=== PATIENT | male | born 1960 | race Caucasian/White ===

== ENCOUNTER 2018-10-10 05:48 | Inpatient (IN) | payer BC ==
[2018-10-10] MEDS ORDERED: Albuterol/Ipratropium 3.0-0.5 MG/3 ML Neb Soln NEB ONE (06:34)
--- NOTE | 2018-10-10 06:47 | EDM.PDOC ---
<Isaias Quiles - Last Filed: 10/10/18 06:35> ED HPI GENERAL MEDICAL PROBLEM - General Chief Complaint: Respiratory Problem Stated Complaint: CHEST PAINS,TROUBLE BREATHING Time Seen by Provider: 10/10/18 06:25 Source of Information: Reports: Patient, RN History Limitations: Reports: Other (limited records) - History of Present Illness INITIAL COMMENTS - FREE TEXT/NARRATIVE: 57 yo male presents with dyspnea. He is a life long smoker. He was seen in urgent care in [place] recently and started on doxycycline and prednisone for "pneumonia". He does not think he had a fever and has not had one since. His sputum has never been colored. He is still on the doxycycline, but only was prescribed 5 days of prednisone. He started getting worse as soon as he finished his prednisone. He was asked to follow up with his primary, but comes here due to SOB tonight. The SOB is worse with exertion. At his peak he smoked about a pack per day, now smokes less than 1/2 ppd. Onset: Gradual Duration: Day(s):, Getting Worse Location: Reports: Chest Quality: Reports: Other (no pain) Severity: Moderate Improves with: Reports: Rest Worsens with: Reports: Movement Context: Reports: Other (see HPI) Associated Symptoms: Reports: Cough, Shortness of Breath. Denies: Fever/Chills Treatments [employer]: Reports: Other (see below) (see HPI, has an MDI inhaler as well. ) left upper abd and back Pain Score (Numeric/FACES): 7 - Related Data Allergies Allergy/AdvReac Type Severity Reaction Status Date / Time No Known Allergies Allergy Verified 10/10/18 06:15 Home Meds: Home Meds Aspirin [Leni Chewable] 81 mg PO BEDTIME 10/10/18 [History] Losartan [Cozaar] 100 mg PO BEDTIME 10/10/18 [History] Naproxen Sodium [Aleve] 440 mg PO BEDTIME 10/10/18 [History] amLODIPine [Norvasc] 5 mg PO BEDTIME 10/10/18 [History] Past Medical History Cardiovascular History: Reports: Hypertension, Other (See Below) Other Cardiovascular History: enlarged heart Gastrointestinal History: Reports: Other (See Below) Other Gastrointestinal History: umbilical hernia Musculoskeletal History: Reports: Back Pain, Chronic - Infectious Disease History Infectious Disease History: Reports: Chicken Pox, Shingles - Past Surgical History HEENT Surgical History: Reports: Oral Surgery GI Surgical History: Reports: Colostomy Musculoskeletal Surgical History: Reports: Other (See Below) Other Musculoskeletal Surgeries/Procedures:: jaw surgery Social & Family History - Tobacco Use Smoking Status *Q: Current Every Day Smoker Years of Tobacco use: 35 Packs/Tins Daily: 0.4 - Caffeine Use Caffeine Use: Reports: Coffee - Recreational Drug Use Recreational Drug Use: No ED ROS GENERAL - Review of Systems Review Of Systems: See Below Constitutional: Reports: No Symptoms HEENT: Reports: Rhinitis Respiratory: Reports: Shortness of Breath, Wheezing, Cough, Sputum (clear). Denies: Hemoptysis Cardiovascular: Reports: No Symptoms Endocrine: Reports: No Symptoms GI/Abdominal: Reports: No Symptoms : Reports: No Symptoms Musculoskeletal: Reports: No Symptoms Skin: Reports: No Symptoms Neurological: Reports: No Symptoms ED EXAM, GENERAL - Physical Exam Exam: See Below Exam Limited By: No Limitations General Appearance: Alert, WD/WN, Mild Distress, Obese Eye Exam: Bilateral Eye: Normal Inspection Ears: Normal External Exam, Normal Canal, Hearing Grossly Normal Ear Exam: Bilateral Ear: Auricle Normal, Canal Normal Nose: Normal Inspection, No Blood Throat/Mouth: Normal Inspection, Normal Lips, Normal Oropharynx, Normal Voice, No Airway Compromise Head: Atraumatic, Normocephalic Neck: Normal Inspection, Supple, Non-Tender Respiratory/Chest: Wheezing, Other (mild tachypnea) Cardiovascular: Regular Rate, Rhythm, No Edema GI/Abdominal: Other (obese) Back Exam: Normal Inspection. No: CVA Tenderness (R), CVA Tenderness (L) Extremities: Normal Inspection, Normal Range of Motion, Non-Tender, No Pedal Edema Neurological: Alert, Oriented, CN II-XII Intact, Normal Cognition, No Motor/ Sensory Deficits Psychiatric: Normal Affect, Normal Mood Skin Exam: Warm, Dry, Intact, Normal Color, No Rash Course - Vital Signs Text/Narrative:: CD reviewed brought in by patient of his CXR from his urgent care visit to [place], shows mild hyperaeration and a RLL infiltrate adjacent to his heart border. Last Recorded V/S: Last Vital Signs Temp 96.7 F 10/10/18 06:05 Pulse 89 10/10/18 10:12 Resp 20 10/10/18 07:12 BP 157/75 H 10/10/18 10:12 Pulse Ox 92 L 10/10/18 10:12 - Orders/Labs/Meds Orders: Active Orders 24 hr Category Date Time Status RT Aerosol Therapy [RC] ASDIRECTED Care 10/10/18 06:34 Active RT Aerosol Therapy [RC] ASDIRECTED Care 10/10/18 07:00 Active Sodium Chloride 0.9% [Normal Saline] 1,000 ml Med 10/10/18 07:30 Active IV ASDIRECTED Medication Orders Albuterol/Ipratropium (Duoneb 3.0-0.5 Mg/3 Ml) 3 ml NEB Q4H [facility] Amlodipine Besylate (Norvasc) 5 mg PO BEDTIME [facility] Aspirin (Aspirin) 81 mg PO BEDTIME [facility] Enoxaparin Sodium (Lovenox) 40 mg SUBCUT DAILY [facility] Last Admin: 10/10/18 09:15 Dose: 40 mg Sodium Chloride (Normal Saline) 1,000 mls @ 250 mls/hr IV ASDIRECTED [facility] Last Admin: 10/10/18 07:34 Dose: 250 mls/hr Ceftriaxone Sodium 1 gm/ (Sodium Chloride) 50 mls @ 100 mls/hr IV Q24H [facility] Last Admin: 10/10/18 09:14 Dose: 100 mls/hr Losartan Potassium (Cozaar) 100 mg PO BEDTIME [facility] Methylprednisolone Sodium Succinate (Solu-Medrol) 125 mg IVPUSH Q8H [facility] Naproxen (Naproxen Sodium) 440 mg PO BEDTIME [facility] Valacyclovir HCl (Valtrex) 1,000 mg PO TID [facility] Last Admin: 10/10/18 09:14 Dose: 1,000 mg Labs: Laboratory Tests 10/10/18 10/10/18 Range/Units 06:45 07:08 WBC 9.1 (4.5-11.0) K/uL RBC 4.40 (4.30-5.90) M/uL Hgb 14.2 (12.0-15.0) g/dL Hct 42.9 (40.0-54.0) % MCV 98 (80-98) fL MCH 32 H (27-31) pg MCHC 33 (32-36) % Plt Count 273 (150-400) K/uL Urine Color Yellow Urine Appearance Clear Urine pH 6.0 (4.5-8.0) Ur Specific [place] 1.015 (1.008-1.030) Urine Protein Negative (NEGATIVE) mg/dL Urine Glucose (UA) Normal (NEGATIVE) mg/dL Urine Ketones Negative (NEGATIVE) mg/dL Urine Occult Blood Negative (NEGATIVE) Urine Nitrite Negative (NEGAITVE) Urine Bilirubin Negative (NEGATIVE) Urine Urobilinogen Normal (NORMAL) mg/dL Ur Leukocyte Esterase Negative (NEGATIVE) Urine RBC Not seen (0-5) Urine WBC 0-5 (0-5) Ur Epithelial Cells Not seen Amorphous Sediment Not seen Urine Bacteria Not seen Urine Mucus Not seen Meds: Medications Generic Name Dose Route Start Last Admin Trade Name Freq PRN Reason Stop Dose Admin Albuterol/Ipratropium 3 ml 10/10/18 11:00 Duoneb 3.0-0.5 Mg/3 Ml NEB Q4H [facility] Amlodipine Besylate 5 mg 10/10/18 21:00 Norvasc PO BEDTIME [facility] Aspirin 81 mg 10/10/18 21:00 Aspirin PO BEDTIME [facility] Enoxaparin Sodium 40 mg 10/10/18 09:00 10/10/18 09:15 Lovenox SUBCUT 40 mg DAILY [facility] Administration Sodium Chloride 1,000 mls @ 250 mls/hr 10/10/18 07:30 10/10/18 07:34 Normal Saline IV 250 mls/hr ASDIRECTED [facility] Administration Ceftriaxone Sodium 1 gm/ 50 mls @ 100 mls/hr 10/10/18 09:00 10/10/18 09:14 Sodium Chloride IV 100 mls/hr Q24H [facility] Administration Losartan Potassium 100 mg 10/10/18 21:00 Cozaar PO BEDTIME [facility] Methylprednisolone Sodium Succinate 125 mg 10/10/18 14:00 Solu-Medrol IVPUSH Q8H [facility] Naproxen 440 mg 10/10/18 21:00 Naproxen Sodium PO BEDTIME [facility] Valacyclovir HCl 1,000 mg 10/10/18 09:00 10/10/18 09:14 Valtrex PO 1,000 mg TID [facility] Administration Discontinued Medications Generic Name Dose Route Start Last Admin Trade Name Freq PRN Reason Stop Dose Admin Albuterol 2.5 mg 10/10/18 07:00 10/10/18 07:12 Proventil Neb Soln NEB 10/10/18 07:01 2.5 mg ONETIME ONE Administration Albuterol/Ipratropium 3 ml 10/10/18 06:34 10/10/18 06:39 Duoneb 3.0-0.5 Mg/3 Ml NEB 10/10/18 06:35 3 ml ONETIME ONE Administration Methylprednisolone Sodium Succinate 125 mg 10/10/18 07:16 10/10/18 07:34 Solu-Medrol IVPUSH 10/10/18 07:17 125 mg ONETIME ONE Administration Prednisone 20 mg 10/10/18 06:53 10/10/18 07:12 Prednisone PO 10/10/18 06:54 20 mg ONETIME ONE Administration Prednisone 20 mg 10/10/18 06:59 10/10/18 07:12 Prednisone PO 10/10/18 07:00 20 mg ONETIME ONE Administration Departure - Departure Disposition: Admitted As Inpatient 64 Clinical Impression: Asthma with status asthmaticus Qualifiers: Asthma severity: moderate Asthma persistence: persistent Qualified Code(s): J45.42 - Moderate persistent asthma with status asthmaticus - Discharge Information - My Orders Last 24 Hours: My Active Orders 10/10/18 07:30 Sodium Chloride 0.9% [Normal Saline] 1,000 ml IV ASDIRECTED - Assessment/Plan Last 24 Hours: My Active Orders 10/10/18 07:30 Sodium Chloride 0.9% [Normal Saline] 1,000 ml IV ASDIRECTED <Jose Mares - Last Filed: 10/10/18 10:53> Course - Re-Assessments/Exams Free Text/Narrative Re-Assessment/Exam: 10/10/18 07:31 Patient care except from Dr. Quiles. After the DuoNeb the patient was still dyspneic and wheezy. An IV was started, he'll be given 125 mg of IV Solu-Medrol and Dr. Wakefield was called and will come in and visit with the patient to consider admission for acute exacerbation of reactive airways and asthma unresponsive to outpatient treatment. Departure - Departure Time of Disposition: 10:35
[2018-10-10] MEDS ORDERED: predniSONE 20 MG Tab PO ONE ×2 (06:53→06:59)
[2018-10-10] MEDS ORDERED: Albuterol 0.083% 2.5 MG/3 ML Neb Soln NEB ONE (07:00)
[2018-10-10] MEDS ORDERED: methylPREDNISolone Sodium Succinate 125 MG/2 ML SDV IVPUSH ONE (07:16)
[2018-10-10] MEDS: Sodium Chloride 0.9% 1,000 ML IV SCH ×2 (07:34→12:28)
[2018-10-10] MEDS ORDERED: methylPREDNISolone Sod Succ 125 MG in Dextrose 5% in Water 100 ML IV SCH ×2 (08:45)
[2018-10-10] MEDS: valACYclovir 1,000 MG Tab PO SCH ×3 (09:14→20:25)
[2018-10-10] MEDS: cefTRIAXone 1 GM in Sodium Chloride 0.9% 50 ML IV SCH (09:14)
[2018-10-10] MEDS: Enoxaparin 40 MG/0.4 ML Syringe SUBCUT SCH (09:15)
--- NOTE | 2018-10-10 10:25 | CRLCR ---
HISTORY: Pneumonia. TECHNIQUE: Two-view chest. COMPARISON: Chest x-ray 10/03/2018. FINDINGS: Persistent curvilinear air-tissue interfaces in the medial lower right lung along the right heart border. No pleural effusion or pneumothorax. Pulmonary vasculature and cardiomediastinal silhouette are within normal limits and unchanged. Mild degenerative changes of the spine. IMPRESSION: Right middle lobe atelectasis or scarring, less likely acute airspace disease, unchanged. Dictated by Salvador Shelton MD @ Oct 10 2018 10:19AM Signed by Dr. Salvador Shelton @ Oct 10 2018 10:23AM
[2018-10-10] MEDS: Albuterol/Ipratropium 3.0-0.5 MG/3 ML Neb Soln NEB SCH ×4 (10:57→23:07)
[2018-10-10] MEDS ORDERED: Acetaminophen 325 MG Tab PO PRN (13:27)
[2018-10-10] MEDS ORDERED: Sodium Chloride 0.9% 10 ML SDV IV STA (13:33)
[2018-10-10] MEDS ORDERED: Sodium Chloride 0.9% 1,000 ML IV SCH (13:45)
[2018-10-10] MEDS: methylPREDNISolone Sodium Succinate 125 MG/2 ML SDV IVPUSH SCH ×2 (14:58→23:07)
[2018-10-10] MEDS: Ibuprofen 600 MG Tab PO PRN (15:01)
--- NOTE | 2018-10-10 15:09 | PCM.HP ---
H&P History of Present Illness - General Date of Service: 10/10/18 Admit Problem/Dx: Admission Diagnosis/Problem Admission Diagnosis/Problem Acute respiratory distress Source of Information: Patient, EMS, EMS Notes Reviewed History Limitations: Reports: No Limitations - History of Present Illness Initial Comments - Free Text/Narative: Barney had gone to an urgent care clinic last week and was given prednisone and an inhaler and later on was found to have herpes zoster and was given medication. Early this morning he became increasing short of breath and wheezing and was in significant respiratory distress came into the emergency room and then was admitted. He normally does not take medication for breathing. Onset of Symptoms: Reports: Gradual Duration of Symptoms: Reports: Day(s): Location: Reports: Chest Improves with: Reports: None Worsens with: Reports: Movement left upper abd and back Pain Score (Numeric/FACES): 7 - Related Data Allergies/Adverse Reactions: Allergies Allergy/AdvReac Type Severity Reaction Status Date / Time No Known Allergies Allergy Verified 10/10/18 06:15 Home Medications: Home Meds Aspirin [Leni Chewable] 81 mg PO BEDTIME 10/10/18 [History] Doxycycline Hyclate 100 mg PO BID 10/10/18 [History] Losartan [Cozaar] 100 mg PO BEDTIME 10/10/18 [History] Naproxen Sodium [Aleve] 440 mg PO BEDTIME 10/10/18 [History] amLODIPine [Norvasc] 5 mg PO BEDTIME 10/10/18 [History] valACYclovir HCl [valACYclovir] 1,000 mg PO TID 10/10/18 [History] Past Medical History Cardiovascular History: Reports: Hypertension, Other (See Below) Other Cardiovascular History: enlarged heart Gastrointestinal History: Reports: Other (See Below) Other Gastrointestinal History: umbilical hernia Musculoskeletal History: Reports: Back Pain, Chronic - Infectious Disease History Infectious Disease History: Reports: Chicken Pox, Shingles Other Infectious Disease History: Current shingles 10/05 - Past Surgical History HEENT Surgical History: Reports: Oral Surgery, Other (See Below) GI Surgical History: Reports: Colonoscopy Musculoskeletal Surgical History: Reports: Other (See Below) Other Musculoskeletal Surgeries/Procedures:: jaw surgery Social & Family History - Family History Cardiac: Reports: Heart Valve Replacement, Stent Respiratory: Reports: Asthma, Other (See Below) Other Respiratory Family Hisory: lung CA Musculoskeletal: Reports: Arthritis, Fibromyalgia Neurological: Reports: CVA Endocrine/Metabolic: Reports: Obesity/MBI 30+ Oncologic: Reports: Hodgkin's Lymphoma, Lung - Tobacco Use Smoking Status *Q: Current Every Day Smoker Years of Tobacco use: 35 Packs/Tins Daily: 0.5 Used Tobacco, but Quit: Yes Month/Year Tobacco Last Used: September 2018 Second Hand Smoke Exposure: No - Caffeine Use Caffeine Use: Reports: Coffee - Alcohol Use Days Per Week of Alcohol Use: 5 Number of Drinks Per Day: 5 Total Drinks Per Week: 25 Date of Last Drink: 10/03/18 Time of Last Drink: 20:00 - Recreational Drug Use Recreational Drug Use: No H&P Review of Systems - Review of Systems: Review Of Systems: See Below General: Reports: Weakness, Fatigue HEENT: Reports: No Symptoms Pulmonary: Reports: Shortness of Breath, Wheezing, Pleuritic Chest Pain, Cough, Sputum Cardiovascular: Reports: Dyspnea on Exertion Gastrointestinal: Reports: No Symptoms Genitourinary: Reports: No Symptoms Musculoskeletal: Reports: No Symptoms Skin: Reports: No Symptoms Psychiatric: Reports: No Symptoms Neurological: Reports: No Symptoms Exam - Exam Exam: See Below - Vital Signs Vital Signs: Last Vital Signs Temp 97.3 F 10/10/18 14:00 Pulse 92 10/10/18 14:37 Resp 20 10/10/18 14:00 BP 154/74 H 10/10/18 14:00 Pulse Ox 94 L 10/10/18 11:00 Weight: 296 lb - Exam General: Alert, Oriented, 4 HEENT: PERRLA, Hearing Intact, Mucosa Moist & [place], Nares Patent, Normal Nasal Septum, Posterior Pharynx Clear, Conjunctiva Clear, EOMI, EACs Clear, TMs Clear Neck: Supple, Trachea Midline, 2 Lungs: Decreased Breath Sounds, Wheezing Cardiovascular: Regular Rate GI/Abdominal Exam: Normal Bowel Sounds, Soft, No Organomegaly, No Distention Extremities: Normal Inspection Peripheral Pulses: 1+: Radial (L), Radial (R) Skin: Warm, Intact Neuro Extensive - Mental Status: Alert, Oriented x3, Normal Mood/Affect, Normal Cognition - Patient Data Lab Results Last 24 hrs: Laboratory Results - last 24 hr 10/10/18 10/10/18 Range/Units 06:45 07:08 WBC 9.1 (4.5-11.0) K/uL RBC 4.40 (4.30-5.90) M/uL Hgb 14.2 (12.0-15.0) g/dL Hct 42.9 (40.0-54.0) % MCV 98 (80-98) fL MCH 32 H (27-31) pg MCHC 33 (32-36) % Plt Count 273 (150-400) K/uL Urine Color Yellow Urine Appearance Clear Urine pH 6.0 (4.5-8.0) Ur Specific [place] 1.015 (1.008-1.030) Urine Protein Negative (NEGATIVE) mg/dL Urine Glucose (UA) Normal (NEGATIVE) mg/dL Urine Ketones Negative (NEGATIVE) mg/dL Urine Occult Blood Negative (NEGATIVE) Urine Nitrite Negative (NEGAITVE) Urine Bilirubin Negative (NEGATIVE) Urine Urobilinogen Normal (NORMAL) mg/dL Ur Leukocyte Esterase Negative (NEGATIVE) Urine RBC Not seen (0-5) Urine WBC 0-5 (0-5) Ur Epithelial Cells Not seen Amorphous Sediment Not seen Urine Bacteria Not seen Urine Mucus Not seen Result Diagrams: 10/10/18 06:45 Problem List Initiated/Reviewed/Updated: Yes Orders Last 24hrs: Active Orders 24 hr Category Date Time Status Patient Status [ADT] Routine ADT 10/10/18 08:25 Active Ambulate [RC] QID Care 10/10/18 08:25 Active Height and Weight [RC] DAILY Care 10/10/18 08:25 Active May Shower [RC] ASDIRECTED Care 10/10/18 08:25 Active Oxygen Therapy [RC] PRN Care 10/10/18 08:25 Active RT Aerosol Therapy [RC] ASDIRECTED Care 10/10/18 06:34 Active RT Aerosol Therapy [RC] ASDIRECTED Care 10/10/18 07:00 Active RT Aerosol Therapy [RC] ASDIRECTED Care 10/10/18 08:37 Active RT Incentive Spirometry [RC] Q1HWA Care 10/10/18 11:00 Active Up to Chair [RC] QID Care 10/10/18 08:25 Active VTE/DVT Education [RC] Per Unit Routine Care 10/10/18 08:25 Active Vital Signs [RC] Q4H Care 10/10/18 08:25 Active Regular Diet [DIET] Diet 10/10/18 Lunch Active Acetaminophen [Tylenol] Med 10/10/18 13:27 Active 650 mg PO Q4H PRN Albuterol/Ipratropium [DuoNeb 3.0-0.5 MG/3 ML] Med 10/10/18 11:00 Active 3 ml NEB Q4H Aspirin Med 10/10/18 21:00 Active 81 mg PO BEDTIME Codeine/guaiFENesin [Robitussin AC] Med 10/10/18 13:26 Active 10 ml PO Q4H PRN Enoxaparin [Lovenox] Med 10/10/18 09:00 Active 40 mg SUBCUT DAILY Ibuprofen [Motrin] Med 10/10/18 13:27 Active 600 mg PO Q6H PRN Losartan [Cozaar] Med 10/10/18 21:00 Active 100 mg PO BEDTIME Sodium Chloride 0.9% [Normal Saline] 1,000 ml Med 10/10/18 13:45 Active IV ASDIRECTED amLODIPine [Norvasc] Med 10/10/18 21:00 Active 5 mg PO BEDTIME cefTRIAXone [Rocephin] 1 gm Med 10/10/18 09:00 Active Sodium Chloride 0.9% [Normal Saline] 50 ml IV Q24H methylPREDNISolone Sod Succ [Solu-MEDROL] Med 10/10/18 14:00 Active 125 mg IVPUSH Q8H valACYclovir [Valtrex] Med 10/10/18 09:00 Active 1,000 mg PO TID Resuscitation Status Routine Resus Stat 10/10/18 08:25 Ordered Medication Orders Acetaminophen (Tylenol) 650 mg PO Q4H PRN PRN Reason: Pain (moderate 4-6) Albuterol/Ipratropium (Duoneb 3.0-0.5 Mg/3 Ml) 3 ml NEB Q4H [facility] Last Admin: 10/10/18 14:36 Dose: 3 ml Admin: 10/10/18 10:57 Dose: 3 ml Amlodipine Besylate (Norvasc) 5 mg PO BEDTIME [facility] Aspirin (Aspirin) 81 mg PO BEDTIME [facility] Enoxaparin Sodium (Lovenox) 40 mg SUBCUT DAILY [facility] Last Admin: 10/10/18 09:15 Dose: 40 mg Guaifenesin/Codeine Phosphate (Robitussin Ac) 10 ml PO Q4H PRN PRN Reason: Cough Ceftriaxone Sodium 1 gm/ (Sodium Chloride) 50 mls @ 100 mls/hr IV Q24H [facility] Last Admin: 10/10/18 09:14 Dose: 100 mls/hr Sodium Chloride (Normal Saline) 1,000 mls @ 25 mls/hr IV ASDIRECTED [facility] Ibuprofen (Motrin) 600 mg PO Q6H PRN PRN Reason: Pain (moderate 4-6) Last Admin: 10/10/18 15:01 Dose: 600 mg Losartan Potassium (Cozaar) 100 mg PO BEDTIME [facility] Methylprednisolone Sodium Succinate (Solu-Medrol) 125 mg IVPUSH Q8H [facility] Last Admin: 10/10/18 14:58 Dose: 125 mg Valacyclovir HCl (Valtrex) 1,000 mg PO TID [facility] Last Admin: 10/10/18 14:58 Dose: 1,000 mg Admin: 10/10/18 09:14 Dose: 1,000 mg Assessment/Plan Comment:: Assessment/plan: #1. COPD with wheezing. He was given Solu-Medrol in the emergency room and I will continue this and have also started him on DuoNeb's on a regular basis. #2. Pneumonia: He had an x-ray of weeks ago and was found to have pneumonia and is being given doxycycline I changed him over to Rocephin to see if this will improve him even faster than what the oxytetracycline.. #3. Herpes zoster. This is affecting the left chest with obvious lesions that are evident we'll continue with the medication. #4. Obesity certainly losing weight would be to his advantage.
[2018-10-10] MEDS ORDERED: Diphtheria,Pertussis(Acell),Tetanus Vaccine 0.5 ML SDV IM ONE (17:00)
[2018-10-10] MEDS: Codeine/guaiFENesin 100mg-10 MG/5 ML Syrup 10 ML Cup PO PRN (20:25)
[2018-10-10] MEDS: Losartan 50 MG Tab PO SCH (20:25)
[2018-10-10] MEDS: amLODIPine 5 MG Tab PO SCH (20:26)
[2018-10-10] MEDS: Aspirin 81 MG Tab.Chew PO SCH (20:26)
[2018-10-10] MEDS: Melatonin 3 MG Tab PO PRN (23:25)
[2018-10-11] MEDS: Albuterol/Ipratropium 3.0-0.5 MG/3 ML Neb Soln NEB SCH ×3 (03:57→11:13)
[2018-10-11] MEDS: methylPREDNISolone Sodium Succinate 125 MG/2 ML SDV IVPUSH SCH (05:45)
[2018-10-11] MEDS: Enoxaparin 40 MG/0.4 ML Syringe SUBCUT SCH (08:40)
[2018-10-11] MEDS: valACYclovir 1,000 MG Tab PO SCH ×3 (08:41→20:51)
[2018-10-11] MEDS: Ibuprofen 600 MG Tab PO PRN (08:46)
[2018-10-11] MEDS: cefTRIAXone 1 GM in Sodium Chloride 0.9% 50 ML IV SCH (08:46)
[2018-10-11] MEDS ORDERED: Diphtheria,Pertussis(Acell),Tetanus Vaccine 0.5 ML SDV IM ONE (10:00)
--- NOTE | 2018-10-11 13:21 | PCM.PN ---
- General Info Date of Service: 10/11/18 Admission Dx/Problem (Free Text): He states he is feeling better but still not 100%. He did not sleep well last night but finally fell asleep earlier this morning. Functional Status: Reports: Pain Controlled - Review of Systems General: Reports: Fatigue HEENT: Reports: No Symptoms Pulmonary: Reports: Shortness of Breath, Wheezing Cardiovascular: Reports: No Symptoms Gastrointestinal: Reports: No Symptoms Genitourinary: Reports: No Symptoms Musculoskeletal: Reports: No Symptoms Skin: Reports: No Symptoms Neurological: Reports: No Symptoms Psychiatric: Reports: No Symptoms - Patient Data Vitals - Most Recent: Last Vital Signs Temp 97.2 F 10/11/18 11:22 Pulse 93 10/11/18 11:22 Resp 20 10/11/18 08:35 BP 133/59 L 10/11/18 11:22 Pulse Ox 97 10/11/18 11:22 Weight - Most Recent: 296 lb I&O - Last 24 Hours: Intake & Output 10/10/18 10/11/18 10/11/18 22:59 06:59 14:59 Intake Total 1640 1032 100 Balance 1640 1032 100 Med Orders - Current: Current Medications Acetaminophen (Tylenol) 650 mg PO Q4H PRN PRN Reason: Pain (moderate 4-6) Albuterol/Ipratropium (Duoneb 3.0-0.5 Mg/3 Ml) 3 ml NEB Q4H [facility] Last Admin: 10/11/18 11:13 Dose: 3 ml Amlodipine Besylate (Norvasc) 5 mg PO BEDTIME [facility] Last Admin: 10/10/18 20:26 Dose: 5 mg Aspirin (Aspirin) 81 mg PO BEDTIME [facility] Last Admin: 10/10/18 20:26 Dose: 81 mg Enoxaparin Sodium (Lovenox) 40 mg SUBCUT DAILY [facility] Last Admin: 10/11/18 08:40 Dose: 40 mg Guaifenesin/Codeine Phosphate (Robitussin Ac) 10 ml PO Q4H PRN PRN Reason: Cough Last Admin: 10/10/18 20:25 Dose: 10 ml Ceftriaxone Sodium 1 gm/ (Sodium Chloride) 50 mls @ 100 mls/hr IV Q24H [facility] Last Admin: 10/11/18 08:46 Dose: 100 mls/hr Sodium Chloride (Normal Saline) 1,000 mls @ 25 mls/hr IV ASDIRECTED [facility] Last Admin: 10/10/18 16:37 Dose: 25 mls/hr Ibuprofen (Motrin) 600 mg PO Q6H PRN PRN Reason: Pain (moderate 4-6) Last Admin: 10/11/18 08:46 Dose: 600 mg Losartan Potassium (Cozaar) 100 mg PO BEDTIME [facility] Last Admin: 10/10/18 20:25 Dose: 100 mg Melatonin (Melatonin) 9 mg PO BEDTIME PRN PRN Reason: Sleep Last Admin: 10/10/18 23:25 Dose: 9 mg Methylprednisolone (Medrol) 4 mg PO DAILY [facility] Stop: 10/11/18 23:00 Methylprednisolone (Medrol) 4 mg PO BID@0800,1999 [facility] Valacyclovir HCl (Valtrex) 1,000 mg PO TID [facility] Last Admin: 10/11/18 08:41 Dose: 1,000 mg Discontinued Medications Albuterol (Proventil Neb Soln) 2.5 mg NEB ONETIME ONE Stop: 10/10/18 07:01 Last Admin: 10/10/18 07:12 Dose: 2.5 mg Albuterol/Ipratropium (Duoneb 3.0-0.5 Mg/3 Ml) 3 ml NEB ONETIME ONE Stop: 10/10/18 06:35 Last Admin: 10/10/18 06:39 Dose: 3 ml Diphtheria/Tetanus/Acell Pertussis (Adacel) 0.5 ml IM .ONCE ONE Stop: 10/11/18 10:01 Last Admin: 10/11/18 10:02 Dose: 0.5 ml Sodium Chloride (Normal Saline) 1,000 mls @ 250 mls/hr IV ASDIRECTED [facility] Last Admin: 10/10/18 12:28 Dose: 250 mls/hr Methylprednisolone Sodium Succinate (Solu-Medrol) 125 mg IVPUSH ONETIME ONE Stop: 10/10/18 07:17 Last Admin: 10/10/18 07:34 Dose: 125 mg Methylprednisolone Sodium Succinate (Solu-Medrol) 125 mg IVPUSH Q8H [facility] Last Admin: 10/11/18 05:45 Dose: 125 mg Naproxen (Naproxen Sodium) 440 mg PO BEDTIME [facility] Prednisone (Prednisone) 20 mg PO ONETIME ONE Stop: 10/10/18 06:54 Last Admin: 10/10/18 07:12 Dose: 20 mg Prednisone (Prednisone) 20 mg PO ONETIME ONE Stop: 10/10/18 07:00 Last Admin: 10/10/18 07:12 Dose: 20 mg - Exam General: Alert, Oriented HEENT: Pupils Equal, Pupils Reactive, EOMI, Mucous Membr. Moist/[place] Neck: Supple Lungs: Decreased Breath Sounds, Wheezing Cardiovascular: Regular Rate, Regular Rhythm Extremities: Normal Inspection, Normal Range of Motion, Non-Tender, No Pedal Edema, Normal Capillary Refill Peripheral Pulses: 1+: Radial (L), Radial (R) Skin: Warm Neurological: No New Focal Deficit Psy/Mental Status: Alert, Normal Affect, Normal Mood - Problem List Review Problem List Initiated/Reviewed/Updated: Yes - My Orders Last 24 Hours: My Active Orders 10/10/18 13:26 Codeine/guaiFENesin [Robitussin AC] 10 ml PO Q4H PRN 10/10/18 13:27 Acetaminophen [Tylenol] 650 mg PO Q4H PRN Ibuprofen [Motrin] 600 mg PO Q6H PRN 10/10/18 13:45 Sodium Chloride 0.9% [Normal Saline] 1,000 ml IV ASDIRECTED 10/10/18 21:00 Aspirin 81 mg PO BEDTIME Losartan [Cozaar] 100 mg PO BEDTIME amLODIPine [Norvasc] 5 mg PO BEDTIME 10/10/18 23:11 Melatonin 9 mg PO BEDTIME PRN 10/11/18 21:00 Mometasone/Formoterol [Dulera 200-5 MCG] 2 puff IH BID 10/12/18 08:00 methylPREDNISolone [Medrol] 4 mg PO BID@0810/12/18 09:00 methylPREDNISolone [Medrol] 4 mg PO DAILY - Plan Plan:: Assessment/plan: #1. COPD with wheezing. I have changed him to Medrol by mouth and change into Dulera rather than the DuoNeb make sure that he'll be stable to go home on oral medications. #2. Pneumonia: chest x-ray done yesterday did not show any acute infiltration appears to be medically stable at the present time without an acute pneumonia. #3. Herpes zoster. This is affecting the left chest with obvious lesions that are evident we'll continue with the medication. #4. Obesity certainly losing weight would be to his advantage.
[2018-10-11] MEDS: Losartan 50 MG Tab PO SCH (20:50)
[2018-10-11] MEDS: Formoterol/Mometasone 200-5 MCG 8.8 GM Inhaler IH SCH (20:50)
[2018-10-11] MEDS: Aspirin 81 MG Tab.Chew PO SCH (20:50)
[2018-10-11] MEDS: amLODIPine 5 MG Tab PO SCH (20:50)
[2018-10-11] MEDS: Codeine/guaiFENesin 100mg-10 MG/5 ML Syrup 10 ML Cup PO PRN (20:51)
[2018-10-11] MEDS: Melatonin 3 MG Tab PO PRN (20:51)
[2018-10-12] MEDS: Formoterol/Mometasone 200-5 MCG 8.8 GM Inhaler IH SCH (07:18)
[2018-10-12] MEDS: cefTRIAXone 1 GM in Sodium Chloride 0.9% 50 ML IV SCH (08:09)
[2018-10-12] MEDS: valACYclovir 1,000 MG Tab PO SCH (08:13)
[2018-10-12] MEDS: Enoxaparin 40 MG/0.4 ML Syringe SUBCUT SCH (08:13)
[2018-10-12] MEDS ORDERED: cefTRIAXone 1 GM Vial IM ONE (09:10)
--- NOTE | 2018-10-12 09:12 | PCM.DCSUM1 ---
Discharge Summary - Hospital Course Brief History: Barney was admitted in respiratory distress. He was wheezing and having a hard time ambulating because of respiratory bronchial spasms. He was seen at another clinic a week ago but did not improve and became worse before his admission to the emergency room. - Discharge Data Discharge Date: 10/12/18 Discharge Disposition: Home, Self-Care 01 Condition: Good - Patient Summary/Data Hospital Course: He was started on duo nebs every 4 hours and Solu-Medrol 125 mg every 6 hours and he made significant improvement. There was no complication noted during his hospitalization but he made steady improvement. The chest x-ray did not show an acute process. - Patient Instructions Activity: As Tolerated Driving: May Drive Today Showering/Bathing: July Shower - Discharge Plan *PRESCRIPTION DRUG MONITORING PROGRAM REVIEWED*: No Home Medications: Home Meds Aspirin [Leni Chewable Aspirin] 81 mg PO BEDTIME 10/10/18 [History] Doxycycline Hyclate 100 mg PO BID 10/10/18 [History] Losartan [Cozaar] 100 mg PO BEDTIME 10/10/18 [History] Naproxen Sodium [Aleve] 440 mg PO BEDTIME 10/10/18 [History] amLODIPine [Norvasc] 5 mg PO BEDTIME 10/10/18 [History] valACYclovir HCl [valACYclovir] 1,000 mg PO TID 10/10/18 [History] Melatonin 9 mg PO BEDTIME PRN tablet 10/12/18 [Rx] Patient Handouts: Smoking Tobacco Information, Adult, Steps to Quit Smoking, Community-Acquired Pneumonia, Adult Forms: ED Department Discharge Referrals: Ady Wakefield Sr, MD [Primary Care Provider] - - Discharge Summary/Plan Comment DC Time >30 min.: Yes Discharge Summary/Plan Comment: Assessment/plan: #1. COPD with wheezing. He was started on Medrol yesterday we will continue this as an outpatient for total of 6 days. he will continue with Dulera 200/4.5. Take 2 puffs twice a day. On the Medrol he'll take 4 mg twice a day for 3 days and then once a day for 3 days and then stop. #2. Pneumonia: I'll give him one more injection of Rocephin today and be going home on doxycycline which she already has at home until those are gone. #3. Herpes zoster. This is affecting the left chest with obvious lesions that are evident we'll continue with the medication. #4. Obesity certainly losing weight would be to his advantage. He is doing much better. The acute problem is over. We'll taper the Medrol over the next 6 days. He'll take the doxycycline which he has at home. I will see him in the office today 1 or 2 weeks depending on his medical condition - General Info Subjective Update: Upon admission he had respiratory distress with bilateral wheezing on discharge the wheezing had resolved. - Review of Systems General: Reports: No Symptoms HEENT: Reports: No Symptoms Pulmonary: Reports: No Symptoms Cardiovascular: Reports: No Symptoms Gastrointestinal: Reports: No Symptoms Genitourinary: Reports: No Symptoms Musculoskeletal: Reports: No Symptoms Skin: Reports: No Symptoms Neurological: Reports: No Symptoms Psychiatric: Reports: No Symptoms - Patient Data Vitals - Most Recent: Last Vital Signs Temp 97.2 F 10/12/18 07:38 Pulse 69 10/12/18 07:38 Resp 16 10/12/18 07:38 BP 129/77 10/12/18 07:38 Pulse Ox 95 10/12/18 07:38 Weight - Most Recent: 296 lb I&O - Last 24 hours: Intake & Output 10/11/18 10/12/18 10/12/18 22:59 06:59 14:59 Intake Total 1000 Balance 1000 Med Orders - Current: Current Medications Acetaminophen (Tylenol) 650 mg PO Q4H PRN PRN Reason: Pain (moderate 4-6) Amlodipine Besylate (Norvasc) 5 mg PO BEDTIME [facility] Last Admin: 10/11/18 20:50 Dose: 5 mg Aspirin (Aspirin) 81 mg PO BEDTIME [facility] Last Admin: 10/11/18 20:50 Dose: 81 mg Ceftriaxone Sodium (Rocephin) 1 gm IM ONETIME ONE Stop: 10/12/18 09:11 Enoxaparin Sodium (Lovenox) 40 mg SUBCUT DAILY [facility] Last Admin: 10/12/18 08:13 Dose: 40 mg Guaifenesin/Codeine Phosphate (Robitussin Ac) 10 ml PO Q4H PRN PRN Reason: Cough Last Admin: 10/11/18 20:51 Dose: 10 ml Ceftriaxone Sodium 1 gm/ (Sodium Chloride) 50 mls @ 100 mls/hr IV Q24H [facility] Last Admin: 10/12/18 08:09 Dose: Not Given Sodium Chloride (Normal Saline) 1,000 mls @ 25 mls/hr IV ASDIRECTED [facility] Last Admin: 10/10/18 16:37 Dose: 25 mls/hr Ibuprofen (Motrin) 600 mg PO Q6H PRN PRN Reason: Pain (moderate 4-6) Last Admin: 10/11/18 08:46 Dose: 600 mg Losartan Potassium (Cozaar) 100 mg PO BEDTIME [facility] Last Admin: 10/11/18 20:50 Dose: 100 mg Melatonin (Melatonin) 9 mg PO BEDTIME PRN PRN Reason: Sleep Last Admin: 10/11/18 20:51 Dose: 9 mg Methylprednisolone (Medrol) 4 mg PO BID@0800,1999 [facility] Last Admin: 10/12/18 08:13 Dose: 4 mg Mometasone Furoate/Formoterol Fumar (Dulera 200-5 Mcg) 2 puff IH BIDRT [facility] Last Admin: 10/12/18 07:18 Dose: 2 puff Valacyclovir HCl (Valtrex) 1,000 mg PO TID [facility] Last Admin: 10/12/18 08:13 Dose: 1,000 mg Discontinued Medications Albuterol (Proventil Neb Soln) 2.5 mg NEB ONETIME ONE Stop: 10/10/18 07:01 Last Admin: 10/10/18 07:12 Dose: 2.5 mg Albuterol/Ipratropium (Duoneb 3.0-0.5 Mg/3 Ml) 3 ml NEB ONETIME ONE Stop: 10/10/18 06:35 Last Admin: 10/10/18 06:39 Dose: 3 ml Albuterol/Ipratropium (Duoneb 3.0-0.5 Mg/3 Ml) 3 ml NEB Q4H [facility] Last Admin: 10/11/18 11:13 Dose: 3 ml Diphtheria/Tetanus/Acell Pertussis (Adacel) 0.5 ml IM .ONCE ONE Stop: 10/11/18 10:01 Last Admin: 10/11/18 10:02 Dose: 0.5 ml Sodium Chloride (Normal Saline) 1,000 mls @ 250 mls/hr IV ASDIRECTED [facility] Last Admin: 10/10/18 12:28 Dose: 250 mls/hr Methylprednisolone (Medrol) 4 mg PO DAILY [facility] Stop: 10/11/18 23:00 Last Admin: 10/11/18 17:44 Dose: 4 mg Methylprednisolone Sodium Succinate (Solu-Medrol) 125 mg IVPUSH ONETIME ONE Stop: 10/10/18 07:17 Last Admin: 10/10/18 07:34 Dose: 125 mg Methylprednisolone Sodium Succinate (Solu-Medrol) 125 mg IVPUSH Q8H [facility] Last Admin: 10/11/18 05:45 Dose: 125 mg Naproxen (Naproxen Sodium) 440 mg PO BEDTIME [facility] Prednisone (Prednisone) 20 mg PO ONETIME ONE Stop: 10/10/18 06:54 Last Admin: 10/10/18 07:12 Dose: 20 mg Prednisone (Prednisone) 20 mg PO ONETIME ONE Stop: 10/10/18 07:00 Last Admin: 10/10/18 07:12 Dose: 20 mg - Exam General: Reports: Alert, Oriented HEENT: Reports: Pupils Equal Neck: Reports: Supple Lungs: Reports: Clear to Auscultation, Normal Respiratory Effort Cardiovascular: Reports: Regular Rate, Regular Rhythm GI/Abdominal Exam: Normal Bowel Sounds, Soft, Non-Tender, No Organomegaly, No Distention, No Abnormal Bruit, No Mass, Pelvis Stable Extremities: Normal Inspection, Normal Range of Motion, Non-Tender, No Pedal Edema, Normal Capillary Refill Skin: Reports: Warm, Dry, Intact Neurological: Reports: No New Focal Deficit Psy/Mental Status: Reports: Alert, Normal Affect, Normal Mood
--- NOTE | 2018-10-12 09:12 | PCM.PN ---
- General Info Date of Service: 10/12/18 Admission Dx/Problem (Free Text): He said he is feeling better and breathing much easier. He said he had a good night's sleep last night. Functional Status: Reports: Pain Controlled - Review of Systems General: Reports: No Symptoms HEENT: Reports: No Symptoms Pulmonary: Reports: No Symptoms Cardiovascular: Reports: No Symptoms Gastrointestinal: Reports: No Symptoms Genitourinary: Reports: No Symptoms Musculoskeletal: Reports: No Symptoms Skin: Reports: No Symptoms Neurological: Reports: No Symptoms Psychiatric: Reports: No Symptoms - Patient Data Vitals - Most Recent: Last Vital Signs Temp 97.2 F 10/12/18 07:38 Pulse 69 10/12/18 07:38 Resp 16 10/12/18 07:38 BP 129/77 10/12/18 07:38 Pulse Ox 95 10/12/18 07:38 Weight - Most Recent: 296 lb I&O - Last 24 Hours: Intake & Output 10/11/18 10/12/18 10/12/18 22:59 06:59 14:59 Intake Total 1000 Balance 1000 Med Orders - Current: Current Medications Acetaminophen (Tylenol) 650 mg PO Q4H PRN PRN Reason: Pain (moderate 4-6) Amlodipine Besylate (Norvasc) 5 mg PO BEDTIME [facility] Last Admin: 10/11/18 20:50 Dose: 5 mg Aspirin (Aspirin) 81 mg PO BEDTIME [facility] Last Admin: 10/11/18 20:50 Dose: 81 mg Ceftriaxone Sodium (Rocephin) 1 gm IM ONETIME ONE Stop: 10/12/18 09:11 Enoxaparin Sodium (Lovenox) 40 mg SUBCUT DAILY [facility] Last Admin: 10/12/18 08:13 Dose: 40 mg Guaifenesin/Codeine Phosphate (Robitussin Ac) 10 ml PO Q4H PRN PRN Reason: Cough Last Admin: 10/11/18 20:51 Dose: 10 ml Ceftriaxone Sodium 1 gm/ (Sodium Chloride) 50 mls @ 100 mls/hr IV Q24H [facility] Last Admin: 10/12/18 08:09 Dose: Not Given Sodium Chloride (Normal Saline) 1,000 mls @ 25 mls/hr IV ASDIRECTED [facility] Last Admin: 10/10/18 16:37 Dose: 25 mls/hr Ibuprofen (Motrin) 600 mg PO Q6H PRN PRN Reason: Pain (moderate 4-6) Last Admin: 10/11/18 08:46 Dose: 600 mg Losartan Potassium (Cozaar) 100 mg PO BEDTIME [facility] Last Admin: 10/11/18 20:50 Dose: 100 mg Melatonin (Melatonin) 9 mg PO BEDTIME PRN PRN Reason: Sleep Last Admin: 10/11/18 20:51 Dose: 9 mg Methylprednisolone (Medrol) 4 mg PO BID@0800,2000 [facility] Last Admin: 10/12/18 08:13 Dose: 4 mg Mometasone Furoate/Formoterol Fumar (Dulera 200-5 Mcg) 2 puff IH BIDRT [facility] Last Admin: 10/12/18 07:18 Dose: 2 puff Valacyclovir HCl (Valtrex) 1,000 mg PO TID [facility] Last Admin: 10/12/18 08:13 Dose: 1,000 mg Discontinued Medications Albuterol (Proventil Neb Soln) 2.5 mg NEB ONETIME ONE Stop: 10/10/18 07:01 Last Admin: 10/10/18 07:12 Dose: 2.5 mg Albuterol/Ipratropium (Duoneb 3.0-0.5 Mg/3 Ml) 3 ml NEB ONETIME ONE Stop: 10/10/18 06:35 Last Admin: 10/10/18 06:39 Dose: 3 ml Albuterol/Ipratropium (Duoneb 3.0-0.5 Mg/3 Ml) 3 ml NEB Q4H [facility] Last Admin: 10/11/18 11:13 Dose: 3 ml Diphtheria/Tetanus/Acell Pertussis (Adacel) 0.5 ml IM .ONCE ONE Stop: 10/11/18 10:01 Last Admin: 10/11/18 10:02 Dose: 0.5 ml Sodium Chloride (Normal Saline) 1,000 mls @ 250 mls/hr IV ASDIRECTED [facility] Last Admin: 10/10/18 12:28 Dose: 250 mls/hr Methylprednisolone (Medrol) 4 mg PO DAILY [facility] Stop: 10/11/18 23:00 Last Admin: 10/11/18 17:44 Dose: 4 mg Methylprednisolone Sodium Succinate (Solu-Medrol) 125 mg IVPUSH ONETIME ONE Stop: 10/10/18 07:17 Last Admin: 10/10/18 07:34 Dose: 125 mg Methylprednisolone Sodium Succinate (Solu-Medrol) 125 mg IVPUSH Q8H [facility] Last Admin: 10/11/18 05:45 Dose: 125 mg Naproxen (Naproxen Sodium) 440 mg PO BEDTIME [facility] Prednisone (Prednisone) 20 mg PO ONETIME ONE Stop: 10/10/18 06:54 Last Admin: 10/10/18 07:12 Dose: 20 mg Prednisone (Prednisone) 20 mg PO ONETIME ONE Stop: 10/10/18 07:00 Last Admin: 10/10/18 07:12 Dose: 20 mg - Exam General: Alert, Oriented HEENT: Pupils Equal, Pupils Reactive, EOMI, Mucous Membr. Moist/[place] Neck: Supple Lungs: Clear to Auscultation, Normal Respiratory Effort Cardiovascular: Regular Rate, Regular Rhythm GI/Abdominal Exam: Normal Bowel Sounds, Soft, Non-Tender, No Organomegaly, No Distention, No Abnormal Bruit, No Mass, Pelvis Stable Extremities: Normal Inspection, Normal Range of Motion, Non-Tender, No Pedal Edema, Normal Capillary Refill Peripheral Pulses: 1+: Radial (L), Radial (R) Skin: Warm, Dry, Intact Neurological: No New Focal Deficit Psy/Mental Status: Alert, Normal Affect, Normal Mood - Problem List Review Problem List Initiated/Reviewed/Updated: Yes - My Orders Last 24 Hours: My Active Orders 10/11/18 21:00 Mometasone/Formoterol [Dulera 200-5 MCG] 2 puff IH BIDRT 10/12/18 08:00 methylPREDNISolone [Medrol] 4 mg PO BID@0800,199910/12/18 09:10 cefTRIAXone [Rocephin] 1 gm IM ONETIME ONE - Plan Plan:: Assessment/plan: #1. COPD with wheezing. He was started on Medrol yesterday we will continue this as an outpatient for total of 6 days. he will continue with Dulera 200/4.5. Take 2 puffs twice a day. On the Medrol he'll take 4 mg twice a day for 3 days and then once a day for 3 days and then stop. #2. Pneumonia: I'll give him one more injection of Rocephin today and be going home on doxycycline which she already has at home until those are gone. #3. Herpes zoster. This is affecting the left chest with obvious lesions that are evident we'll continue with the medication. #4. Obesity certainly losing weight would be to his advantage. He is doing much better. The acute problem is over. We'll taper the Medrol over the next 6 days. He'll take the doxycycline which he has at home. I will see him in the office today 1 or 2 weeks depending on his medical condition
[2018-10-12] MEDS ORDERED: cefTRIAXone 1 GM, Lidocaine 1% 2.1 ML IM ONE ×2 (10:00)
== END 2018-10-12 09:49 | disposition home or self-care (01) | DRG 140 ==
LOC: JP.ED 05:48 → JP.MS 08:25
PROVIDERS: ADMIT Internal Medicine; ATTEND Internal Medicine
DX: J44.0 Chronic obstructive pulmonary disease with (acute) lower respiratory infection (principal); J45.998 Other asthma; J44.9 Chronic obstructive pulmonary disease, unspecified; F17.210 Nicotine dependence, cigarettes, uncomplicated; J18.9 Pneumonia, unspecified organism; R06.03 Acute respiratory distress; I10 Essential (primary) hypertension; B02.9 Zoster without complications; G89.29 Other chronic pain; M54.9 Dorsalgia, unspecified; E66.9 Obesity, unspecified; K42.9 Umbilical hernia without obstruction or gangrene; I51.7 Cardiomegaly; Z79.82 Long term (current) use of aspirin; Z79.899 Other long term (current) drug therapy; Z68.41 Body mass index [BMI] 40.0-44.9, adult
CPT/HCPCS: 36415; 71046; 81001; 85027; 90471; 90715; 94640; 96361; 96374; 99285-25; A9270-GY; J0696; J1650; J2001; J2930; J7030; J7050; J7620-GY